=== PATIENT | male | born 1965 | race Caucasian/White ===

== ENCOUNTER 2021-09-17 13:53 | Emergency (ER) | payer BC ==
[2021-09-17] MEDS ORDERED: Lactated Ringers 1,000 ML IV ONE ×2 (14:15→14:52)
[2021-09-17] MEDS ORDERED: Metoclopramide 10 MG/2 ML SDV IVPUSH ONE (14:16)
[2021-09-17] MEDS ORDERED: HYDROmorphone 1 MG/ML Syringe IVPUSH ONE (14:16)
[2021-09-17] MEDS ORDERED: Gabapentin 300 MG Cap PO ONE (14:51)
[2021-09-17] MEDS ORDERED: Bacitracin Oint 15 GM Tube ONE ×2 (15:03→15:17)
[2021-09-17] MEDS ORDERED: Lidocaine 2% 11 ML Jelly Filled Syringe ONE (15:03)
[2021-09-17] MEDS ORDERED: Lidocaine 2% Jelly 10 ML Urojet MUCMEM ONE (15:06)
[2021-09-17] MEDS ORDERED: Diphtheria,Pertussis(Acell),Tetanus Vaccine 0.5 ML Syringe IM ONE (15:07)
[2021-09-17 16:22] LABS: CORONAVIRUS COVID-19 NAA NEGATIVE (NEGATIVE)
[2021-09-17 16:37] LABS: HEMOGLOBIN A1C 8.2 %
== END 2021-09-17 16:05 ==
LOC: JD.ED 13:53
DX: T24.201A Burn of second degree of unspecified site of right lower limb, except ankle and foot, initial encounter (principal); T24.202A Burn of second degree of unspecified site of left lower limb, except ankle and foot, initial encounter; T23.201A Burn of second degree of right hand, unspecified site, initial encounter; T23.202A Burn of second degree of left hand, unspecified site, initial encounter; T20.26XA Burn of second degree of forehead and cheek, initial encounter; T20.25XA Burn of second degree of scalp [any part], initial encounter; T20.14XA Burn of first degree of nose (septum), initial encounter; Z20.822 Contact with and (suspected) exposure to COVID-19; Z23 Encounter for immunization
CPT/HCPCS: 0240U; 16025; 36415; 71045; 80053; 83036; 85025; 85610; 90471; 90715; 96361; 96374; 96375; 99285; A9270; J1170; J2765; J7120